=== PATIENT | male | born 1955 | race Asian ===

== ENCOUNTER 2018-05-15 16:45 | Inpatient (IN) | payer BC ==
[~2018-05-15] VITALS: Ht 175.3 cm; Wt 72.9 kg
[2018-05-15] MEDS ORDERED: LIPITOR 10MG10 MG PO (17:21)
[2018-05-15] MEDS ORDERED: ZEBETA 5MG5 MG PO (17:22)
[2018-05-15] MEDS ORDERED: COUMADIN 2MG2 MG/TAB PO (17:23)
[2018-05-15 17:59] LABS: COLLECTION METHOD CLEAN CATCH
[2018-05-15 18:04] LABS: BASO % 0.3 % (0.0-2.0); EOS % 0.3 % (0-4.0); GRAN # 6.7 (1.4-6.5); GRAN % 88.1 % (42.2-75.2); HEMATOCRIT 43.2 % (42.0-52.0); HEMOGLOBIN 14.3 g/dl (13.5-18.0); LYMPH # 0.5 (1.2-3.4); LYMPH % 6.7 % (20.0-51.0); MEAN CELL VOLUME 88 fl (80.0-100.0); MEAN CORPUSCULAR HEMOGLOBIN 29 pg (27.0-31.0); MEAN CORPUSCULAR HGB CONC 33 g/dl (33.0-37.0); MONO # 0.3 (0.1-0.6); MONO % 4.3 % (1.7-9.3); PLATELET COUNT 141 K/mm3 (130-400); RED BLOOD COUNT 4.92 M/mm3 (4.20-5.60); REDCELL DISTRIBUTION WIDTH-CV 14.3 % (11.5-14.5)
[2018-05-15 18:15] LABS: ALBUMIN 3.9 gm/dL (3.5-5.0); BILIRUBIN,TOTAL 1.2 mg/dL (0.0-1.0); C-REACTIVE PROTEIN 1.1 mg/dL (0.0-0.9); CALCIUM 8.6 mg/dL (8.4-10.2); CREATININE, serum 0.96 mg/dL (0.66-1.25); POTASSIUM 3.5 mmol/L (3.4-5.0); TOTAL PROTEIN 6.9 gm/dL (6.4-8.2)
[2018-05-15 19:19] LABS: MUCOUS Present /lpf; PH 5 (5-8); SQUAMOUS EPITHELIAL None Seen /hpf; URINE APPEARANCE Clear; URINE BACTERIA Rare /hpf; URINE BILIRUBIN Negative (NEGATIVE); URINE BLOOD 1+ (NEGATIVE); URINE COLOR Yellow; URINE GLUCOSE Negative (NEGATIVE); URINE KETONE Negative (NEGATIVE); URINE LEUKOCYTE ESTERASE Negative (NEGATIVE); URINE NITRATE Negative (NEGATIVE); URINE PROTEIN(semi-quant) Negative (NEGATIVE); URINE RBC 0-2 /hpf; URINE UROBILINOGEN Negative (NEGATIVE)
[2018-05-15 20:04] LABS: INR 2.2 (0.8-3.0); PROTHROMBIN TIME 24.5 SECONDS (9.7-12.8)
[2018-05-15 21:20] LABS: HIV 1/2 Antibodies Non-Reactive; HIV-1p24 Antigen Non-Reactive
--- NOTE | 2018-05-15 22:08 | NUR ---
Pt up to floor from ED, assessments donw as much as possible as Pt does not speak Sami, family assisted as much as possible translating. Pt was placed under airborne precautions pending TB testing results.
[2018-05-15] MEDS ORDERED: JANTOVEN2 MG PO (22:13)
[2018-05-15 23:37] LABS: ARTERIAL BLD GAS O2 SATURATION 90.1 % (92-100); ARTERIAL BLOOD GAS BASE EXCESS -1.5 (-2-2); ARTERIAL BLOOD GAS HCO3 21.1 meq/L (22-26); ARTERIAL BLOOD GAS PCO2 29.8 mmHg (35-45); ARTERIAL BLOOD GAS PO2 53.5 mmHg (80-100); ARTERIAL BLOOD GAS pH 7.47 (7.35-7.45)
[2018-05-16 01:44] LABS: ARTERIAL BLD GAS O2 SATURATION 95.3 % (92-100); ARTERIAL BLOOD GAS BASE EXCESS -2.4 (-2-2); ARTERIAL BLOOD GAS HCO3 20.1 meq/L (22-26); ARTERIAL BLOOD GAS PCO2 28.7 mmHg (35-45); ARTERIAL BLOOD GAS PO2 75.7 mmHg (80-100); ARTERIAL BLOOD GAS pH 7.46 (7.35-7.45)
--- NOTE | 2018-05-16 05:31 | NUR ---
Pt has been sleeping during the night, easily aroused, no C/O pain, VS have been stable.
[2018-05-16 06:50] LABS: HEMATOCRIT 41.4 % (42.0-52.0); HEMOGLOBIN 13.7 g/dl (13.5-18.0); MEAN CELL VOLUME 87 fl (80.0-100.0); MEAN CORPUSCULAR HEMOGLOBIN 29 pg (27.0-31.0); MEAN CORPUSCULAR HGB CONC 33 g/dl (33.0-37.0); MEAN PLATELET VOLUME 10.4 fl (7.4-10.4); PLATELET COUNT 136 K/mm3 (130-400); RED BLOOD COUNT 4.77 M/mm3 (4.20-5.60); REDCELL DISTRIBUTION WIDTH-CV 14.4 % (11.5-14.5)
[2018-05-16 07:01] LABS: ALBUMIN 3.3 gm/dL (3.5-5.0); BILIRUBIN,TOTAL 1.3 mg/dL (0.0-1.0); CALCIUM 8.2 mg/dL (8.4-10.2); CREATININE, serum 0.95 mg/dL (0.66-1.25); POTASSIUM 3.6 mmol/L (3.4-5.0); TOTAL PROTEIN 6.2 gm/dL (6.4-8.2)
[2018-05-16 07:30] LABS: BAND 7 % (0-10); LYMPHOCYTE 6 % (20.0-51.0); NEUTROPHILS 85 % (42.0-75.2); PLATELET ESTIMATE DECREASED (NORMAL)
[2018-05-16 07:48] LABS: INR 2.2 (0.8-3.0); PROTHROMBIN TIME 25.1 SECONDS (9.7-12.8)
[2018-05-16 07:51] VITALS: BP 107/65; PULSE 57; TEMP 98.1
--- NOTE | 2018-05-16 08:15 | NUR ---
Initial assessment completed. No signs of pain. Assisted with ordering breakfast at this time. The call light is in place and the patient has oxygen on at 2L/NC.
[2018-05-16 12:06] VITALS: BP 104/54; PULSE 82; TEMP 97.3
--- NOTE | 2018-05-16 13:13 | NUR ---
SW attended clinical rounds. Doctor used the nerve specialist service to speak with patient. The nerve specialist was able to speak with patient but patient understood very little. SW called patient's daughter in law to get more information. She reports patient lives in [place] and is visiting family here in [place]. Patient has a PCP in [place] and is independent. Daughter in law reports, she will be here today at 2:30pm. BHARAT does not anticipate any discharge needs.
[2018-05-16 14:16] VITALS: BP 104/54; PULSE 82; TEMP 97.3
[2018-05-16 14:33] LABS: PROCALCITONIN 1.24 ng/mL (0.00-0.09)
[2018-05-16 15:36] VITALS: BP 110/54; PULSE 66; TEMP 98
--- NOTE | 2018-05-16 17:30 | NUR ---
Moved to Medical isolation room 359 for droplet, R/O TB. Daughter present for transfer. No pain or needs reported per the translation from daughter. The patient is requesting only hot meals. The call light is in place.
[2018-05-16 19:53] VITALS: BP 103/56; PULSE 58; TEMP 97.6
--- NOTE | 2018-05-16 20:30 | NUR ---
Initial shift assessment done- on airborne isolation for r/o TB, also on droplet isolation for resp viral panel pending. Resting in room, talking on phone to family- nurse talked with family to translate,, understands he will be NPO after MN for stress test in AM-- denies pain, scant amount bloody sputum
[2018-05-17 00:39] VITALS: BP 101/58; PULSE 76; TEMP 97.7
[2018-05-17 03:50] VITALS: BP 110/66; PULSE 83; TEMP 97.6
--- NOTE | 2018-05-17 05:53 | NUR ---
Quiet night-no requests throughout the night- VSS
[2018-05-17 07:29] LABS: INR 3.9 (0.8-3.0); PROTHROMBIN TIME 44.4 SECONDS (9.7-12.8)
[2018-05-17 07:36] LABS: BASO % 0.1 % (0.0-2.0); GRAN # 13.2 (1.4-6.5); GRAN % 88.1 % (42.2-75.2); HEMATOCRIT 38.4 % (42.0-52.0); HEMOGLOBIN 12.6 g/dl (13.5-18.0); LYMPH # 0.9 (1.2-3.4); LYMPH % 5.9 % (20.0-51.0); MEAN CELL VOLUME 87 fl (80.0-100.0); MEAN CORPUSCULAR HEMOGLOBIN 28 pg (27.0-31.0); MEAN CORPUSCULAR HGB CONC 33 g/dl (33.0-37.0); MEAN PLATELET VOLUME 10.8 fl (7.4-10.4); MONO # 0.8 (0.1-0.6); MONO % 5.4 % (1.7-9.3); PLATELET COUNT 142 K/mm3 (130-400); RED BLOOD COUNT 4.43 M/mm3 (4.20-5.60); REDCELL DISTRIBUTION WIDTH-CV 14.6 % (11.5-14.5)
[2018-05-17 07:43] LABS: CALCIUM 8.6 mg/dL (8.4-10.2); CREATININE, serum 0.84 mg/dL (0.66-1.25); POTASSIUM 3.7 mmol/L (3.4-5.0)
[2018-05-17 08:36] VITALS: BP 113/69; PULSE 87; TEMP 97.4
--- NOTE | 2018-05-17 09:55 | NUR ---
PT SITTING AT SIDE OF BED, EATING BREAKFAST, AND TALKING ON CELLPHONE. PT DOES NOT SPEAK ICELANDIC. PT APPEARS TO BE IN NO PAIN OR DISTRESS AT THIS TIME. CALL LIGHT WITHIN REACH.
--- NOTE | 2018-05-17 10:41 | NUR ---
ASSESSMENT COMPLETED. PT IN BED WITH HOB ELEVATED AT 30 DEGREE ANGLE. PT OBSERVED TO BE ALERT. PT SHOWS NO S/S OF PAIN OR DISTRESS, RESP EVEN AND UNLABORED. CALL LIGHT WITHIN REACH.
[2018-05-17 10:58] VITALS: BP 122/80; PULSE 75; TEMP 97.5
--- NOTE | 2018-05-17 11:30 | NUR ---
PT OFFERED LUNCH, POINTED TO MENU AND PT SHOOK HIS HEAD NO. PT HAS NO S/S OF PAIN OR DISCOMFORT. PT TAKES MEDICATIONS WITHOUT DIFFICULTIES AND GETS UP OUT OF BED WITHOUT DIFFICULTIES, GAIT STEADY. CALL LIGHT WITHIN REACH.
--- NOTE | 2018-05-17 14:20 | NUR ---
REPORT TO DR. FIGUEROA GIVEN AND NO NEW ORDERS AT THIS TIME.
--- NOTE | 2018-05-17 15:34 | NUR ---
PT HAD COUGHED UP SOME BLOODY/GREEN/YELLOW, THICK SPUTUM. PT WAS MAKING JESTERS OF TAKING MEDICATION AND LAB DRAWS. PT APPEARED UPSET, BY TONE OF VOICE AND FACIAL EXPRESSIONS OF FROWNING. PT DID NOT SHOW S/S OF PAIN OR DISCOMFORT. PT WAS SHOWED THE MENU AND PT REFUSED BY NODDING NO AND HANDS SWINGING IN THE AREA. CALL LIGHT WITHIN REACH.
[2018-05-17 16:19] VITALS: BP 127/75; PULSE 75; TEMP 98.2
--- NOTE | 2018-05-17 16:20 | NUR ---
PT'S FAMILY CAME BY TO SEE PT. DR. CASON CAME INTO ROOM AND WENT OVER MEDICATIONS AND LEXISCAN FOR TOMORROW EXPLAINED TO FAMILY AND THEY TRANSLATED TO PT. PT IS AWARE THAT HE IS TO HAVE NO CAFFIENE AND NOTHING TO EAT OR DRINK AFTER MIDNIGHT. PT WAS ORDERED A NICOTINE PATCH AND IT WAS APPLIED TO LEFT UPPER SHOULDER. PT HAS BEEN COUGHING MORE AND PITTING UP SPUTUM. PT DENIED PAIN OR DISCOMFORT. PT WAS CONCERNED THAT HE WAS NOT GETTING HOME MEDICATIONS. DR. CASON SHOWED FAMILY AND PT THAT MEDICATIONS THAT HE RECEIVES FROM HOME IS BEING GIVEN. PT'S FAMILY HAD BROUGHT FOOD FROM HOME FOR PT AND ALSO GRANDDAUGHTER ORDERED SUPPER FOR PT. PT IN BED WITH HOB AT 45 DEGREE ANGLE, WITH NO S/S OF PAIN OR DISTRESS AT THIS TIME. FAMILY HAS LEFT, BUT SON ADVISED THAT HE WILL BE HERE TOMORROW AT 0700 FOR THE LEXISCAN.
[2018-05-17 20:00] VITALS: BP 127/66; PULSE 99; TEMP 96.6
--- NOTE | 2018-05-17 20:30 | NUR ---
Initial shift assessment done- denies pain-- small amount bloody sputum noted, talking with family on the phone-- will go for semaj tomorrow,NPO after MN, son will be here early to translate for consent-- up in room on own- steady on feet
[2018-05-18] VITALS (10 sets, daily range): BP systolic 117–158; BP diastolic 70–90; PULSE 69–83; TEMP 97.1–99.2
--- NOTE | 2018-05-18 06:08 | NUR ---
Quiet night- no requests- npo for REJI cha
[2018-05-18 08:12] LABS: BASO % 0.1 % (0.0-2.0); GRAN # 11.5 (1.4-6.5); GRAN % 81.8 % (42.2-75.2); HEMATOCRIT 39.2 % (42.0-52.0); HEMOGLOBIN 12.8 g/dl (13.5-18.0); LYMPH # 1.8 (1.2-3.4); LYMPH % 12.8 % (20.0-51.0); MEAN CELL VOLUME 88 fl (80.0-100.0); MEAN CORPUSCULAR HEMOGLOBIN 29 pg (27.0-31.0); MEAN CORPUSCULAR HGB CONC 33 g/dl (33.0-37.0); MEAN PLATELET VOLUME 10.2 fl (7.4-10.4); MONO # 0.7 (0.1-0.6); MONO % 4.8 % (1.7-9.3); PLATELET COUNT 162 K/mm3 (130-400); RED BLOOD COUNT 4.44 M/mm3 (4.20-5.60); REDCELL DISTRIBUTION WIDTH-CV 14.8 % (11.5-14.5)
[2018-05-18 08:17] LABS: INR 3.4 (0.8-3.0); PROTHROMBIN TIME 38.3 SECONDS (9.7-12.8)
[2018-05-18 08:20] LABS: CALCIUM 8.4 mg/dL (8.4-10.2); CREATININE, serum 0.84 mg/dL (0.66-1.25); POTASSIUM 3.3 mmol/L (3.4-5.0)
--- NOTE | 2018-05-18 09:42 | NUR ---
Assessment completed, alert/oriented, vital signs stable, denies pain or discomfort, son present but also does not speak Japanese/ we have used the [employer] line this morning to discuss plan of care and to obtain consent for Lexiscan stress test, INR still high and gave some Vit.K and explained this to patient and family/ Coumadin on hold, night nurse reports he is still coughing up some blood tinged sputum/ I however have not observed any personally, lungs are CTA/ diminished, heart Irregular/ A.flutter on tele rate controlled in the 80's, answered all questions and discussed plan of care throuhg the interpretter, will continue to monitor
--- NOTE | 2018-05-18 12:34 | NUR ---
Patient is leaving the floor at this time for his Lexiscan stress test
[2018-05-18 19:32] LABS: INR 2.3 (0.8-3.0); PROTHROMBIN TIME 25.6 SECONDS (9.7-12.8)
[2018-05-19] VITALS (13 sets, daily range): BP systolic 112–145; BP diastolic 71–97; PULSE 64–85; TEMP 97.4–98.2
--- NOTE | 2018-05-19 01:24 | NUR ---
Completed medication administration and assessment; PT denies pain or discomfort at time of assessment; 1900 INR 2.3 - new order for additional Vit K 7.5mg administered one time per additional nursing order; Primary language Mandarin-[place]an; PT A&Ox3, BS active x4, IND in room, IHRR, course lung sounds throughout with dimnished bases bilateral; PT assisted to nderstand NPO status utilizing [id number] and son; PT non-verbally acknowledged understanding; PT denied further needs at time of exit; call light placed within reach; Will continue to monitor. CDA
--- NOTE | 2018-05-19 02:57 | NUR ---
PT resting well in bed; PT continues to be on droplet, contact, and airborne ISO; PT primary language Mandarin Maori - son and [id number] - intermittently in room to assist with communication and meals; NPO since midnight for possible bronchoscopy; consent will need signed with AM with assist of son who will be back around 0900; No further needs or concerns assessed at time of rounds; Will continue to monitor. CDA
[2018-05-19 06:13] LABS: INR 1.5 (0.8-3.0); PROTHROMBIN TIME 16.9 SECONDS (9.7-12.8)
[2018-05-19 06:14] LABS: BASO % 0.1 % (0.0-2.0); EOS # 0.1 (0.0-0.7); EOS % 0.6 % (0-4.0); GRAN # 5.1 (1.4-6.5); GRAN % 65.7 % (42.2-75.2); HEMATOCRIT 37.6 % (42.0-52.0); HEMOGLOBIN 12.1 g/dl (13.5-18.0); LYMPH % 26.2 % (20.0-51.0); MEAN CELL VOLUME 89 fl (80.0-100.0); MEAN CORPUSCULAR HEMOGLOBIN 29 pg (27.0-31.0); MEAN CORPUSCULAR HGB CONC 32 g/dl (33.0-37.0); MEAN PLATELET VOLUME 10.2 fl (7.4-10.4); MONO # 0.5 (0.1-0.6); PLATELET COUNT 172 K/mm3 (130-400); RED BLOOD COUNT 4.24 M/mm3 (4.20-5.60); REDCELL DISTRIBUTION WIDTH-CV 14.9 % (11.5-14.5)
[2018-05-19 06:23] LABS: CALCIUM 8.1 mg/dL (8.4-10.2); CREATININE, serum 0.91 mg/dL (0.66-1.25); POTASSIUM 3.3 mmol/L (3.4-5.0)
--- NOTE | 2018-05-19 07:04 | NUR ---
Report given to LAKSHMI Blanc. CDA
[2018-05-19 10:00] LABS: ANGIOTENSIN CONVERTING ENZYME 14 U/L (8 - 53)
--- NOTE | 2018-05-19 11:28 | NUR ---
Pt taken downstairs for bronchoscopy procedure. Pt report given to Barbara MARTINS and Chandler floyd.
--- NOTE | 2018-05-19 14:17 | NUR ---
Pt returned from bronchoscopy procedure and alert to person. Pt unlabored respirations and VS WNL. Pt put on post op vitals. Pt has call light in reach.
--- NOTE | 2018-05-19 15:16 | NUR ---
Pt resting in bed with eyes closed and unlabored resp. Pt did wake while in room and nods ok. Pt post op noted. Pt has call light in reach and remains on droplet,contact, and airborne precautions.
--- NOTE | 2018-05-19 18:15 | NUR ---
Pt resting in bed with eyes closed and unlabored resp. Pt using PRN antiseptic spray for soar throat. Pt has some food brought in by his son and nurse ordered a tray for him. Pt IV intact and patent. VS WNL. Pt communicates with gestures and uses FACES scale for pain when awake. Pt continues with communication barrier. Son had his daughter Micah translate some questions he had about throat spray and plan of care. Pt son working tomorrow and may not answer phone can call daughter Micah who speaks bahamian for help if needed to translate. Pt has call light in reach and gives thumbs up and denies needs.
--- NOTE | 2018-05-19 19:26 | NUR ---
Pt report given to Valerio MARTINS. Pt talking on his phone during shift change. Pt has call light in reach and no s/sx of pain. Respirations unlabored.
--- NOTE | 2018-05-19 20:29 | NUR ---
Pt resting in bed, no C/O pain at this time, shift assessments complete, left Pt bed in lowest position, call light in reach.
[2018-05-19 22:11] LABS: C-ANCA 35 U/mL (0-99)
[2018-05-20 00:59] VITALS: BP 135/87; PULSE 75
[2018-05-20 04:00] VITALS: BP 131/84; PULSE 74
--- NOTE | 2018-05-20 06:35 | NUR ---
Pt slept well during the night, no C/O pain, VS have remained stable.
[2018-05-20 08:51] VITALS: BP 141/87; PULSE 62; TEMP 97.8
[2018-05-20 09:03] LABS: BASO % 0.1 % (0.0-2.0); EOS % 0.1 % (0-4.0); GRAN # 5.5 (1.4-6.5); GRAN % 69.7 % (42.2-75.2); HEMATOCRIT 39.8 % (42.0-52.0); LYMPH # 1.7 (1.2-3.4); LYMPH % 21.1 % (20.0-51.0); MEAN CELL VOLUME 87 fl (80.0-100.0); MEAN CORPUSCULAR HEMOGLOBIN 29 pg (27.0-31.0); MEAN CORPUSCULAR HGB CONC 33 g/dl (33.0-37.0); MEAN PLATELET VOLUME 10.4 fl (7.4-10.4); MONO # 0.6 (0.1-0.6); MONO % 8.1 % (1.7-9.3); PLATELET COUNT 188 K/mm3 (130-400); RED BLOOD COUNT 4.56 M/mm3 (4.20-5.60); REDCELL DISTRIBUTION WIDTH-CV 14.5 % (11.5-14.5)
[2018-05-20 09:06] LABS: INR 1.1 (0.8-3.0)
--- NOTE | 2018-05-20 09:10 | NUR ---
Patient is resting in bed at this time. AM medications given. Patient does not speak any Mozambican and is hard to communicate with at this time. There is not noted pain/discomfort. Patient did point that his IV was leaking. IV to right AC discontinued and restarted in left forearm first attempt. Call light in place. TB percautions being followed. Patient does not appear to have any needs at this time.
[2018-05-20 09:11] LABS: CALCIUM 8.5 mg/dL (8.4-10.2); CREATININE, serum 0.88 mg/dL (0.66-1.25); POTASSIUM 3.9 mmol/L (3.4-5.0)
[2018-05-20 13:08] VITALS: BP 147/89; PULSE 71; TEMP 97.8
[2018-05-20 14:15] LABS: HISTOPLASMA ID Negative (Negative); HISTOPLASMA MYCELIAL Negative (Negative); HISTOPLASMA YEAST Negative (Negative)
--- NOTE | 2018-05-20 16:30 | NUR ---
Spoke with Dr. Escoto regarding the Coumadin being on hold still post procedure. Dr. Escoto will restart Coumadin bridge over with Lovenox. New orders written and acknowledged
[2018-05-20 16:52] VITALS: BP 152/92; PULSE 64; TEMP 98.4
--- NOTE | 2018-05-20 17:16 | NUR ---
With assistance of nephrologist line; attempted explaination of Lovenox Injections. Patient still did not understand the procedure but was willing to let me give him the shot. Confirmed IV fluids with Dr. Escoto as these were pre-op fluids that were ordered. IV fluids have been discontinued
--- NOTE | 2018-05-20 17:58 | NUR ---
Per Dr. Escoto; patient given Maalox 15 cc for stomach discomfort. Patietn seemed to understand the medication.
[2018-05-20 18:58] VITALS: BP 126/71; PULSE 58; TEMP 97.5
[2018-05-21 00:30] VITALS: BP 123/78; PULSE 73
[2018-05-21 04:02] VITALS: BP 126/80; PULSE 65; TEMP 97.3
--- NOTE | 2018-05-21 05:04 | NUR ---
PT REFUSED RT TX AT THIS TIME.
--- NOTE | 2018-05-21 05:10 | NUR ---
PT HAD NO NOTED PAIN. APPEARED TO HAVE SLEPT WELL. NO ISSUES OR CONSERNS VOICED
[2018-05-21 08:52] VITALS: BP 144/95; PULSE 78; TEMP 97.8
--- NOTE | 2018-05-21 09:12 | NUR ---
Pt is awake and A/Ox4, resting in bed. Pt is non-Norwegian speaking so verbal communication is difficult. Pt does not appear to be in any acute pain or distress. Resp. are even and unlabored. Saline lock to left FA is free of complications. Pt denies any needs, will monitor.
[2018-05-21 14:07] VITALS: BP 120/71; PULSE 72; TEMP 97.3
--- NOTE | 2018-05-21 18:27 | NUR ---
Pt has had an overall uneventful shift.
[2018-05-21 19:43] VITALS: BP 105/77; PULSE 72; TEMP 97.3
--- NOTE | 2018-05-21 19:46 | NUR ---
Pt in bed resting, shift assessments complete, left Pt call light in reach, bed in lowest popsition.
[2018-05-22 00:20] VITALS: BP 114/70; PULSE 60
--- NOTE | 2018-05-22 05:28 | NUR ---
Pt slept well during the night, no noticable indication of pain, VS have remained stable.
[2018-05-22 05:39] VITALS: BP 104/60; PULSE 71
[2018-05-22 06:34] LABS: HEMATOCRIT 41.8 % (42.0-52.0); MEAN CELL VOLUME 89 fl (80.0-100.0); MEAN CORPUSCULAR HEMOGLOBIN 30 pg (27.0-31.0); MEAN CORPUSCULAR HGB CONC 34 g/dl (33.0-37.0); MEAN PLATELET VOLUME 9.9 fl (7.4-10.4); PLATELET COUNT 204 K/mm3 (130-400); RED BLOOD COUNT 4.69 M/mm3 (4.20-5.60); REDCELL DISTRIBUTION WIDTH-CV 14.6 % (11.5-14.5)
[2018-05-22 06:35] LABS: INR 1.4 (0.8-3.0); PROTHROMBIN TIME 15.9 SECONDS (9.7-12.8)
[2018-05-22 06:50] LABS: CREATININE, serum 0.97 mg/dL (0.66-1.25); POTASSIUM 4.1 mmol/L (3.4-5.0)
[2018-05-22 07:58] LABS: BAND 1 % (0-10); LYMPHOCYTE 16 % (20.0-51.0); NEUTROPHILS 76 % (42.0-75.2); PLATELET ESTIMATE NORMAL (NORMAL)
--- NOTE | 2018-05-22 10:00 | NUR ---
Patient denies wanting assessment, vital signs, or medications. LAKSHMI Sanchez talked with [id number] and he agreed to take blood pressure and Monodox. Patient refuses potassium. Patient is alert and independent. Patient spoke with [id number] and is ready to discharge.
[2018-05-22] MEDS ORDERED: K-TAB20 PO (10:32)
[2018-05-22 12:55] VITALS: BP 109/76; PULSE 59; TEMP 97.7
[2018-05-22 14:24] LABS: COCCIDIOIDES AB IGG Negative (Negative); COCCIDIOIDES AB IGM Negative (Negative); COCCIDIOIDES CF Negative (Negative)
[2018-05-22] MEDS ORDERED: DOXYCYCLINE 10100 MG PO (16:07)
--- NOTE | 2018-05-22 16:58 | NUR ---
Patient will discharge to son's home in [place] today. Patient will be set up for a primary care physician with [facility]. Patient's family is here to transport him home.
--- NOTE | 2018-05-22 17:08 | NUR ---
Discharge education completed with the patient. All questions answered for the granddaughter adn son. INT removed per this nurse. The patient family stated he would not be following up as recommended. This nurse discussed that the follow up is highly recommended. However, they continued to refuse to for the patient. The patient did agree to take any new medications. Education on need and purpose for each new medication was provider to luciano family as well. All questions answered per this nurse.
== END 2018-05-22 17:19 | disposition home or self-care (01) | DRG 193 ==
LOC: COL.ER 16:45 → EDBD 16:46 → SURG 19:25 → MEDICAL 19:25 → COL.ER 19:25 → SURG 21:06 → MEDICAL 05-16 15:40 → SURG 05-16 15:40 → MEDICAL 05-16 15:40
PROVIDERS: Family Medicine; Hospitalist; Internal Medicine Critical Care Medicine; Internal Medicine Pulmonary Disease; Nurse Practitioner Family; Physician Assistant
PROC: 0B9B8ZX Drainage of Left Lower Lobe Bronchus, Via Natural or Artificial Opening Endoscopic, Diagnostic (ICD-10-PCS; 2018-05-19)
PROC: 0B968ZX Drainage of Right Lower Lobe Bronchus, Via Natural or Artificial Opening Endoscopic, Diagnostic (ICD-10-PCS; principal; 2018-05-19 11:15)
DX: J18.1 Lobar pneumonia, unspecified organism (principal); J96.01 Acute respiratory failure with hypoxia; I21.4 Non-ST elevation (NSTEMI) myocardial infarction; I48.92 Unspecified atrial flutter; R04.2 Hemoptysis; I48.2 Chronic atrial fibrillation; E78.5 Hyperlipidemia, unspecified; I10 Essential (primary) hypertension; Z79.01 Long term (current) use of anticoagulants; F17.210 Nicotine dependence, cigarettes, uncomplicated; E87.6 Hypokalemia
CPT/HCPCS: 99223-AI; 99232-AI; 99233-AI; 99239; A4216; A9500; J0696; J1650; J2405; J2704; J2785; J2930; J7030; J7120; J7512; Q9967